=== PATIENT | male | born 1945 | race Caucasian/White ===

== ENCOUNTER 2017-02-07 17:41 | Emergency (ER) | payer MEDICARE ==
[~2017-02-07] VITALS: Ht 185.4 cm; Wt 104.5 kg
[~2017-02-07 17:41] MED LIST: Z.0.NO CURRENT MEDS
[2017-02-07 17:43] VITALS: BP 122/67; PULSE 61; RESP 16; TEMP 98.2; O2SAT 98
[2017-02-07] MEDS ORDERED: LEVA500T20 PO (19:28)
[2017-02-07 19:29] VITALS: BP 126/77; PULSE 66; RESP 16; O2SAT 98
--- NOTE | 2017-02-07 19:43 | PD ---
HPI Chief Complaint: Chest Pain Time Seen by Provider: 19:35 Travel History International Travel<30 days: No Contact w/Intl Traveler<30days: No Traveled to known affect area: No History of Present Illness HPI The patient is a 71-year-old male with no known history of heart disease who is been on Levaquin for 5 days for a possible pneumonia. He began getting diaphoretic after latter day today and Dr. Simons told him to get a chest x-ray. He denies any chest pain or shortness of breath. He denies any fever. He does have a cough productive of white sputum. He does not drink alcohol or smoke. His last stress test was 5 years ago. PFSH Past Medical History Autoimmune Disease: No Blood Disorders: No Cancer: No Cardiovascular Problems: No Chemotherapy: No Endocrine: No Gastrointestinal Disorders: No Glaucoma: No Genitourinary: No Musculoskeletal: No Neurologic: No Psychiatric: No Reproductive: No Respiratory: No Radiation Therapy: No ?: Not Past Surgical History Abdominal Surgery: No Cardiac Surgery: No Ear Surgery: No Endocrine Surgery: No Eye Surgery: No Genitourinary Surgery: No Gynecologic Surgery: No Neurologic Surgery: No Oral Surgery: No Thoracic Surgery: No Other Surgery: No Social History Alcohol Use: No Tobacco Use: No Substance Use: No Allergies-Medications (Allergen,Severity, Reaction): Coded Allergies: No Known Allergies (Verified , 03/14/09) Reported Meds & Prescriptions Reported Meds & Active Scripts Active Reported Levaquin (Levofloxacin) 500 Mg Tablet 500 Mg PO DAILY No Current Meds (Miscellaneous Medication) Misc Review of Systems Except as stated in HPI: all other systems reviewed are Neg Physical Exam Narrative GENERAL: The patient is alert, oriented 3 in no respiratory distress. His vital signs are normal. SKIN: Focused skin assessment warm/dry. HEAD: Atraumatic. Normocephalic. EYES: Pupils equal and round. No scleral icterus. No injection or drainage. ENT: No nasal bleeding or discharge. Mucous membranes pink and moist. NECK: Trachea midline. No JVD. No neck vein distention is present. CARDIOVASCULAR: Regular rate and rhythm. No murmur appreciated. RESPIRATORY: No accessory muscle use. Clear to auscultation. Breath sounds equal bilaterally. GASTROINTESTINAL: Abdomen soft, non-tender, nondistended. Hepatic and splenic margins not palpable. MUSCULOSKELETAL: No obvious deformities. No clubbing. No cyanosis. No edema. NEUROLOGICAL: Awake and alert. No obvious cranial nerve deficits. Motor grossly within normal limits. Normal speech. PSYCHIATRIC: Appropriate mood and affect; insight and judgment normal. Data Data Last Documented VS Vital Signs Date Time Temp Pulse Resp B/P (MAP) Pulse Ox O2 Delivery O2 Flow Rate FiO2 02/07/17 19:34 16 98 Room Air 02/07/17 19:29 66 126/77 (93) 02/07/17 17:43 98.2 Orders Orders Complete Blood Count With Diff (02/07/17 19:35) Comprehensive Metabolic Panel (02/07/17 19:35) B-Type Natriuretic Peptide (02/07/17 19:35) Magnesium (Mg) (02/07/17 19:35) Troponin I (02/07/17 19:35) Urinalysis - C+S If Indicated (02/07/17 19:35) Iv Access Insert/Monitor (02/07/17 19:35) Electrocardiogram (02/07/17 19:35) Ecg Monitoring (02/07/17 19:35) Oximetry (02/07/17 19:35) Oxygen Administration (02/07/17 19:35) Chest, Pa & Lat (02/07/17 19:35) Sodium Chloride 0.9% Flush (Ns Flush) (02/07/17 19:45) Labs Laboratory Tests Test 02/07/17 19:50 02/07/17 20:45 White Blood Count 4.2 TH/MM3 Red Blood Count 4.87 MIL/MM3 Hemoglobin 14.4 GM/DL Hematocrit 42.7 % Mean Corpuscular Volume 87.7 FL Mean Corpuscular Hemoglobin 29.6 PG Mean Corpuscular Hemoglobin Concent 33.7 % Red Cell Distribution Width 12.6 % Platelet Count 167 TH/MM3 Mean Platelet Volume 8.8 FL Neutrophils (%) (Auto) 40.4 % Lymphocytes (%) (Auto) 40.0 % Monocytes (%) (Auto) 12.4 % Eosinophils (%) (Auto) 4.7 % Basophils (%) (Auto) 2.5 % Neutrophils # (Auto) 1.7 TH/MM3 Lymphocytes # (Auto) 1.7 TH/MM3 Monocytes # (Auto) 0.5 TH/MM3 Eosinophils # (Auto) 0.2 TH/MM3 Basophils # (Auto) 0.1 TH/MM3 CBC Comment DIFF FINAL Differential Comment Blood Urea Nitrogen 15 MG/DL Creatinine 0.92 MG/DL Random Glucose 106 MG/DL Total Protein 7.2 GM/DL Albumin 3.5 GM/DL Calcium Level 8.2 MG/DL Magnesium Level 2.3 MG/DL Alkaline Phosphatase 129 U/L Aspartate Amino Transf (AST/SGOT) 34 U/L Alanine Aminotransferase (ALT/SGPT) 36 U/L Total Bilirubin 0.6 MG/DL Sodium Level 142 MEQ/L Potassium Level 3.6 MEQ/L Chloride Level 107 MEQ/L Carbon Dioxide Level 26.5 MEQ/L Anion Gap 9 MEQ/L Estimat Glomerular Filtration Rate 82 ML/MIN Troponin I LESS THAN 0.02 NG/ML B-Type Natriuretic Peptide 49 PG/ML Urine Color YELLOW Urine Turbidity CLEAR Urine pH 6.5 Urine Specific [place] 1.028 Urine Protein TRACE mg/dL Urine Glucose (UA) NEG mg/dL Urine Ketones NEG mg/dL Urine Occult Blood NEG Urine Nitrite NEG Urine Bilirubin NEG Urine Leukocyte Esterase NEG Urine RBC 0-2 /hpf Urine WBC 0-2 /hpf Urine Squamous Epithelial Cells 0-5 /hpf Urine Bacteria NONE /hpf Microscopic Urinalysis Comment CULT NOT INDICATED MDM Medical Decision Making Medical Screen Exam Complete: Yes Emergency Medical Condition: Yes Medical Record Reviewed: Yes Interpretation(s) The chest x-ray shows no evidence of acute cardiopulmonary disease. The CBC is normal with a white count on the low side of normal at 4200. The EKG shows sinus bradycardia with a rate of [address] elevation or depression. The complete metabolic profile shows a GFR of 82, calcium 6.2 and alkaline phosphatase of 129 but is otherwise normal. The BNP is normal. The urinalysis is normal except for specific gravity 1.0-8. Differential Diagnosis Pneumonia, bronchitis, congestive heart failure, acute coronary syndrome, electrolyte disorder, renal insufficiency, anemia, viral syndrome Narrative Course The patient may have a viral syndrome is suggested by his borderline low white count. The EKG and cardiac enzymes reveal no acute coronary syndrome. The patient should rest and follow-up with his primary care physician on Thursday. The patient was offered a stress test but he declined. Diagnosis Primary Impression: Viral syndrome Additional Instructions: As we discussed, you should rest and follow-up with your primary care physician on Thursday. As we discussed, talk about getting a repeat stress through your primary care physician. Med/Other Pt SpecificInfo: No Change to Meds Disposition: 01 DISCHARGE HOME Condition: Duane Luciano MD Feb 07, 2017 19:43
[2017-02-07] MEDS ORDERED: SODIUM CHLORIDE 0.9% FLUSH 10 ML FLUSH IVF PRN (19:45)
--- NOTE | 2017-02-07 20:07 | RADRPT ---
EXAM DATE/TIME: 02/07/2017 19:40 [facility] COMPARISON: No previous studies available for comparison. INDICATIONS : Congestion. Chest pain. MEDICAL HISTORY : None. SURGICAL HISTORY : None. ENCOUNTER: Initial ACUITY: 2 weeks PAIN SCORE: 0/10 LOCATION: Bilateral chest FINDINGS: PA and lateral views of the chest demonstrate the lungs to be symmetrically aerated without evidence of mass, infiltrate or effusion. The cardiomediastinal contours are unremarkable. Osseous structure s are intact. CONCLUSION: No evidence of acute cardiopulmonary disease. Mehrdad Castañeda MD on February 07, 2017 at 20:06 Board Certified Radiologist. This report was verified electronically.
[2017-02-07 20:13] LABS: AUTOMATED NEUTROPHIL # 1.7 TH/MM3 (1.8-7.7); BASOPHIL # 0.1 TH/MM3 (0-0.2); BASOPHIL % 2.5 % (0.0-2.0); EOSINOPHIL # 0.2 TH/MM3 (0-0.4); EOSINOPHIL % 4.7 % (0.0-4.0); HEMATOCRIT 42.7 % (39.0-51.0); HEMO FLAGS DIFF FINAL; LYMPHOCYTE # 1.7 TH/MM3 (1.0-4.8); MEAN CELL VOLUME 87.7 FL (80.0-100.0); MEAN CORPUSCULAR HEMOGLOBIN 29.6 PG (27.0-34.0); MEAN CORPUSCULAR HGB CONC 33.7 % (32.0-36.0); MONO % 12.4 % (0.0-8.0); NEUT % 40.4 % (16.0-70.0); PLATELET COUNT 167 TH/MM3 (150-450); RED BLOOD COUNT 4.87 MIL/MM3 (4.50-5.90); RED CELL DISTRIBUTION WIDTH 12.6 % (11.6-17.2); WHITE BLOOD COUNT 4.2 TH/MM3 (4.0-11.0)
[2017-02-07 20:20] LABS: CHLORIDE 107 MEQ/L (98-107); POTASSIUM 3.6 MEQ/L (3.5-5.1); SODIUM (NA) 142 MEQ/L (136-145)
[2017-02-07 20:24] LABS: ANION GAP 9 MEQ/L (5-15); BICARBONATE 26.5 MEQ/L (21.0-32.0); BLOOD UREA NITROGEN 15 MG/DL (7-18); MAGNESIUM 2.3 MG/DL (1.5-2.5)
[2017-02-07 20:27] LABS: ALT (GPT) 36 U/L (12-78); AST (GOT) 34 U/L (15-37); GLOMERULAR FILTRATION RATE 82 ML/MIN (>89)
[2017-02-07 20:29] LABS: TOTAL BILIRUBIN ADULT 0.6 MG/DL (0.2-1.0)
[2017-02-07 20:30] LABS: ALKALINE PHOSPHATASE 129 U/L (45-117)
[2017-02-07 20:50] VITALS: BP 128/78; PULSE 66; RESP 16; O2SAT 99
[2017-02-07 20:52] LABS: BLOOD, URINE NEG (NEG); GLUCOSE,URINE NEG (NEG); KETONE, URINE NEG (NEG); NITRITE,URINE NEG (NEG); PH, URINE 6.5 (5.0-8.5)
[2017-02-07 21:04] LABS: URINE COLOR YELLOW (YELLW/STRAW); WBC, URINE 0-2 /hpf (0-5)
[2017-02-07 21:05] LABS: COMMENT (UR) CULT NOT INDICATED; COMMENT2 (UR) MUCOUS PRESENT; CULTURE IF INDICATED CULT NOT INDICATED; RBC, URINE 0-2 /hpf (0-3); SQUAMOUS EPITHELIAL CELL URINE 0-5 /hpf (0-5)
[2017-02-07 21:46] VITALS: BP 130/72
--- NOTE | 2017-02-08 12:55 | EKG ---
Date Performed: 02/07/2017 Time Performed: 17:49:14 PTAGE: 71 years EKG: SINUS BRADYCARDIA BORDERLINE ECG PREVIOUS TRACING : 12/13/2004 09.34 No significant change from previous tracing noted. DOCTOR: Dominic Simms Interpretating Date/Time 02/08/2017 12:53:25
== END 2017-02-07 21:47 | disposition home or self-care (01) ==
LOC: PHED 17:41
DX: B34.9 Viral infection, unspecified (principal)
CPT/HCPCS: 71020; 80053; 81001; 83735; 83880; 84484; 85025; 93005; 99285

== ENCOUNTER → 2017-04-14 | Day surgery (SDC) | payer MEDICARE ==
[~2017-04-14] MED LIST changes: +ACETAMINOPHEN 1000 MG/100 ML 100 ML IV ONE; +BUPIVACAINE/EPINEPHRINE 0.25% 50 ML VIAL ONE; +KETOROLAC TROMETHAMINE 30 MG/ML (IVP) VIAL IV PUSH ONE; +LACTATED RINGER'S 1000 ML INJ 1,000 ML ONE; +LEVA500T33 PO; +MEPERIDINE HCL 25 MG/ML VIAL ONE; +MIDAZOLAM HCL 2 MG/2 ML VIAL ONE; +ONDANSETRON HCL 4 MG/2 ML VIAL IV PUSH ONE; +PROPOFOL 200 MG/20 ML AMP IV ONE; +ceFAZolin 2 GM PREMIX 50 ML ONE; +metroNIDAZOLE 500 MG INJ 100 ML IV ONE
--- NOTE | 2017-04-14 17:28 | TN ---
cc: MISSY HUNTER M.D. DATE OF SURGERY 04/14/2017 PREOPERATIVE DIAGNOSES 1. Acute cholecystitis. 2. Jaundice. POSTOPERATIVE DIAGNOSES 1. Acute cholecystitis. 2. Jaundice. 3. Multiple small impacted stones neck of gallbladder and cystic duct. PROCEDURE PERFORMED Laparoscopic cholecystectomy. SURGEON Dr. Missy Hunter. [employer] SHERRY Jones ANESTHESIA General endotracheal. COMPLICATIONS None. INDICATION FOR PROCEDURE Mr. Liz is a pleasant 71-year-old gentleman who was seen last week in the office after an episode of acute cholecystitis requiring emergency room visit. He was seen and evaluated. At that time he was noted to have normal liver function tests. He was offered a cholecystectomy. The patient wanted to observe and do diet modification, did not want immediate cholecystectomy. Over the weekend his pain returned. He came to the office yesterday complaining of significant right upper quadrant abdominal pain. He was offered immediate cholecystectomy today. The patient was seen and evaluated in the preoperative holding area. In the preoperative holding area he was noted to be slightly jaundiced likely indicating that he had a common duct stone. I advised him we would proceed with cholecystectomy and we would evaluate his cystic and common duct intraoperatively. DETAILS OF PROCEDURE The patient was identified, brought to the operating room placed supine on the operating table. After adequate general endotracheal anesthesia was achieved, the abdomen was prepped and draped in standard surgical fashion. The infraumbilical space was anesthetized with 0.25% Marcaine. An infraumbilical incision was made. Dissection was carried down through the subcutaneous tissue to the midline fascia. The midline fascia was incised sharply. A finger was then placed in the peritoneal cavity without difficulty. A blunt balloon trocar was inserted and the abdomen was insufflated to 15 mmHg using CO2 gas. Next two 5 mm trocars were placed in the right upper quadrant after anaesthetizing the skin and subcutaneous tissue with 0.25% Marcaine. The gallbladder was identified and noted to be markedly distended and inflamed. The gallbladder was completely filled with gallstones. The gallbladder was retracted cephalad. The gallbladder neck was extremely inflamed and dense. There was significant inflammatory rind extending down toward the area of the common bile duct. We therefore, elected to stay high on the gallbladder at the neck and start our dissection there. Using a combination of blunt and lesser cautery dissection the gallbladder neck was carefully dissected. We were able to identify the cystic artery early on and it was clipped twice proximally, once distally and then divided. We then proceeded down the neck of the gallbladder toward the common bile duct. Again it was extremely inflamed and dense. Multiple dissection techniques were used including Kittner dissectors, hydrodissection, blunt dissection and minimal electrocautery use. As I felt we were not making significant progress after a prolonged time, I elected to go ahead and perform a dome down technique on the gallbladder. The gallbladder fundus was grasped and the gallbladder was taken down in a retrograde fashion using electrocautery bovie. Once we freed the gallbladder up completely again we were able only to get the gallbladder neck where it was seen diving down in to this dense inflammatory rind where it was assumed the common bile duct would be. We did identify the cystic artery. It was adjacent to the cystic node where it was adjacent to the cystic artery where we had clipped it. I did not want to dissect below this for fear of injuring the common bile duct. It should be noted the gallbladder neck was completely filled with gallstones and difficult to grasp. At this point I elected to transect the gallbladder distally. An Endoloop was placed over the gallbladder as far down as we had dissected and it was secured. We then took the electrocautery bovie and dissected the gallbladder neck proximal to where our Endoloop was placed. Once we did this the gallbladder was freed up and removed. There was a small portion of the gallbladder neck and there were multiple stones noted within it. These were carefully brought out one by one and removed. No stones were spilled. Once we did this we took a 30 degree lens and we could clearly look down into the neck of the gallbladder where the cystic duct was exiting. We could see that the cystic duct that was occluded as no bile was coming forth. Multiple attempts at irrigation were used to see if we could get some bile flowing and the bile would not flow. I therefore, felt a cholangiogram would not be able to be performed likely due to the fact that the cystic duct was occluded with stones. More than likely the patient had cystic duct and common duct stones as his gallbladder was completely filled with small stones. Therefore, were irrigated out the neck of the gallbladder one more time and made sure there were no additional stones left. We then placed an Endoloop proximal to where we had transected the remaining gallbladder down in the area of the cystic duct adjacent to the cystic artery and node. Care was taken not to compromise the common duct area. It should be noted that at no point did we have any bile coming back from the cystic duct stump or the gallbladder neck. Liver bed was completely hemostatic. Clips were in place on the cystic artery stump and there was no evidence of bleeding. At this point we went ahead and placed a 7 Scottish drain at one of the 5 mm port sites. It was brought out through one of the 5 mm ports in the right upper quadrant. Again the cystic duct stump and gallbladder neck were carefully inspected and there was no leakage of bile. We went ahead and resected the gallbladder neck distal to the ligated cystic duct. This was sent down with the specimen. One final time we copiously irrigated the liver bed and the cystic duct stump and again no bile was seen coming forth. Drain was left in place in the subhepatic space. The abdomen was then carefully desufflated. All ports were removed under direct vision. Drain was secured with a 3-0 nylon suture. The fascia was closed with a 0 Vicryl in a [id number] fashion times two. The skin was closed with 4-0 Vicryl. The patient tolerated the procedure well. Please note the [facility] education administrative assistant was medically necessary due to the complexity of this surgical procedure and her extensive surgical knowledge and skills. She also has extensive knowledge of my surgical technique. Please note this operative procedure was extremely difficult and took an excessive amount of time as well as opening additional instrumentation and operative time was in excess of two hours. MD GREG Schmitt/JULIUS /4:32 PM /4:40 PM
[2017-04-14 19:00] LABS: INDIRECT BILIRUBIN 1.6 MG/DL (0.0-0.8); TOTAL BILIRUBIN ADULT 6.6 MG/DL (0.2-1.0)
== END | disposition home or self-care (01) ==
LOC: ESDC 11:30
PROVIDERS: ATTEND Surgery Trauma Surgery
DX: K80.12 Calculus of gallbladder with acute and chronic cholecystitis without obstruction (principal)
CPT/HCPCS: 00790; 47562; 80076; 88304; J0131; J0690; J1885; J2175; J2250; J2405; J3010; J7120